=== PATIENT | female | born 1985 | race Two or more races ===

== ENCOUNTER 2018-10-24 11:42 | Emergency (ER) | payer MEDICAID, OTHER ==
[~2018-10-24] VITALS: Ht 152.4 cm; Wt 63.5 kg
[2018-10-24 12:16] VITALS: BP 127/85
--- NOTE | 2018-10-24 12:21 | Emergency Room Report ---
History of Present Illness General Chief Complaint: Pain Source: Patient Present Illness HPI 30-year-old female presents to the emergency department complaining of 7/10 in severity left arm pain with a burning sensation and intermittent tingling at the location of where her neck splint on and plan is situated x 2 days. Patient reports that next month she is due for removal and reinsertion of a new implant. Patient states that her implant has begun to wear off and her periods have come back over the course of this past month and she has been having a lot of irregular bleeding. Patient denies muscle weakness in the affected extremity she denies trauma or fall she denies erythema, warmth or skin color changes. pt. denies abdominal pain. Pt. denies recent unprotected intercourse. Allergies: Coded Allergies: No Known Allergies (Unverified , 10/24/18) Patient History Past Medical History: see triage record Past Surgical History: none Pertinent Family History: none Last Menstrual Period: 10/10/2018 Now: No Reviewed Nursing Documentation: PMH: Agreed; PSxH: Agreed Nursing Documentation-PMH Hx Seizures: Yes - doesn't take med at this time. Review of Systems All Other Systems: negative except mentioned in HPI Physical Exam Vital Signs Date Time Temp Pulse Resp B/P (MAP) Pulse Ox O2 Delivery O2 Flow Rate FiO2 10/24/18 11:47 97.5 81 18 127/85 99 Room Air Sp02 EP Interpretation: reviewed, normal General Appearance: no apparent distress, alert, GCS 15, non-toxic Head: normocephalic, atraumatic Eyes: bilateral eye normal inspection, bilateral eye PERRL ENT: hearing grossly normal, normal voice, other - no neck pain or ttp. Neck: full range of motion Respiratory: chest non-tender, lungs clear, normal breath sounds, speaking full sentences Cardiovascular #1: regular rate, rhythm, normal capillary refill Cardiovascular #2: 2+ radial (R), 2+ radial (L) Rectal: deferred Genitourinary: normal inspection Musculoskeletal: back normal, gait/station normal, normal range of motion, other - FROM of the Shoulder and elbow, tender - left UE medially, ttp to palpation over the implant which is palpated superficially. Neurologic: alert, oriented x3, responsive, motor strength/tone normal, sensory intact, normal gait, speech normal, grossly normal Psychiatric: judgement/insight normal Skin: normal color, no rash, warm/dry, well hydrated Medical Decision Making PA Attestation Dr. Ortiz is my supervising Physician whom patient management has been discussed with. Diagnostic Impression: Primary Impression: Arm pain, left ER Course 30-year-old female presents to the emergency department complaining of 7/10 in severity left arm pain with a burning sensation and intermittent tingling at the location of where her neck splint on and plan is situated x 2 days. Patient reports that next month she is due for removal and reinsertion of a new implant. Patient states that her implant has begun to wear off and her periods have come back over the course of this past month and she has been having a lot of irregular bleeding. Patient denies muscle weakness in the affected extremity she denies trauma or fall she denies erythema, warmth or skin color changes. pt. denies abdominal pain. Pt. denies recent unprotected intercourse. Ddx considered but are not limited to Cellulitis/abscess Sprain/Strain/Spasm, DVT just to name a few. Vital signs: are WNL, pt. is afebrile H&PE are most consistent with musculoskeletal injury will perform imaging to r/ o fractures/dislocations. ORDERS: - UE Duplex US: negative for DVT, US tech also focused on area of implant and does not see any fluid collection or abnormal findings. ED INTERVENTIONS: - Tylenol # 3 -I do not identify an emergent condition at this time. With current presentation , pt. is stable for close outpatient follow up and conservative treatment. D/ w pt. to return promptly to ED with worsening or new symptoms.- Pt. verbalizes' understanding and agreement with proposed treatment plan.proposed treatment plan. DISCHARGE: At this time pt. is stable for d/c to home. Will provide printed patient care instructions, and any necessary prescriptions. Care plan and follow up instructions have been discussed with the patient prior to discharge. CT/MRI/US Diagnostic Results CT/MRI/US Diagnostic Results : Imaging Test Ordered: Venous Duplex UE US Impression Negative for acute DVT - unit technician report. Last Vital Signs Date Time Temp Pulse Resp B/P (MAP) Pulse Ox O2 Delivery O2 Flow Rate FiO2 10/24/18 12:16 97.5 81 18 127/85 99 Room Air Disposition: HOME, SELF-CARE Condition: Stable Scripts Ibuprofen* (MOTRIN*) 600 Mg Tablet 600 MG ORAL THREE TIMES A DAY, #30 TAB 0 Refills Prov: Juanita Leo 10/24/18 Patient Instructions: Pain Without a Known Cause, Radicular Pain Additional Instructions: Take medications as directed. Follow up with a Primary Care Provider in 3-5 days, even if your symptoms have resolved. FOR NEXPLANON REMOVAL Return sooner to ED if new symptoms occur, or current symptoms become worse. - Please note that this Emergency Department Report was dictated using PowerStorestrans[employer] typist technology software, occasionally this can lead to erroneous entry secondary to interpretation by the dictation equipment. Juanita Leo Oct 24, 2018 12:21
[2018-10-24] MEDS ORDERED: Tylenol #3 tab (300mg/30mg) ORAL ONE (12:30)
[2018-10-24] MEDS ORDERED: IBUPROFEN600 MG ORAL (14:56)
--- NOTE | 2018-10-24 15:04 | Diagnostic Imaging Report ---
EXAM: US Duplex Left Upper Extremity Veins CLINICAL HISTORY: PAIN TECHNIQUE: Real-time duplex ultrasound scan of the left upper extremity veins integrating B-mode two-dimensional vascular structure, Doppler spectral analysis, color flow Doppler imaging and compression. COMPARISON: No relevant prior studies available. FINDINGS: Deep veins: Unremarkable. No DVT in the internal jugular, subclavian, axillary, or brachial veins. The veins demonstrate normal color flow, are normally compressible, with normal phasic flow and/or augmentation response. Superficial veins: Unremarkable. No thrombus in the visualized basilic and cephalic veins. IMPRESSION: No DVT demonstrated.
[2018-10-24 16:32] VITALS: BP 127/85
== END 2018-10-24 15:08 | disposition home or self-care (01) ==
LOC: EMR 14:25
DX: M79.602 Pain in left arm (principal)
CPT/HCPCS: 93971; 99284

== ENCOUNTER 2019-11-28 10:03 | Emergency (ER) | payer SELFPAY ==
[~2019-11-28] VITALS: Ht 154.9 cm; Wt 62.1 kg
[~2019-11-28 10:03] MED LIST: IBUPROFEN600 MG ORAL
[2019-11-28 10:15] VITALS: BP 137/93
[2019-11-28] MEDS ORDERED: Morphine Sulfate 4mg/ml Inj (IV USE ONLY) IVP ONE (10:15)
[2019-11-28] MEDS ORDERED: ceFAZolin 1gm/50ml Premix 50 ML IV ONE (10:15)
--- NOTE | 2019-11-28 10:15 | NUR ---
ED Nurse Note: Pt ambulated to ER d/t post dog bite on LT hand. Per pt, she was just having some jogging with spouse when neighbor's bog attacked and bit her hand. First aid given by charge nurse and ophthalmic medical technologist. Placed on bed.
--- NOTE | 2019-11-28 10:25 | NUR ---
ED Nurse Note: X-ray on bedside
[2019-11-28] MEDS ORDERED: KEPPRA500 M4 ORAL ×2 (10:26→12:18)
--- NOTE | 2019-11-28 10:34 | Emergency Room Report ---
History of Present Illness General Chief Complaint: Animal Bite Source: Patient Present Illness HPI Patient is a 34-year-old female presents after dog bite just prior to arrival. Patient is right-hand dominant. Had recently been jogging when neighbors dog bit her to the hand one time. Patient denies any pulsatile bleeding. She reports having increased pain to the index as well as middle finger.Denies any other locations of pain. Reports having some paresthesias to the hand. Reports having a tetanus vaccine approximately 4 years ago. Denies any medication allergies. Allergies: Coded Allergies: No Known Allergies (Unverified , 10/24/18) Patient History Past Medical History: see triage record Reviewed Nursing Documentation: PMH: Agreed; PSxH: Agreed Nursing Documentation-PMH Hx Seizures: Yes - doesn't take med at this time. Review of Systems All Other Systems: negative except mentioned in HPI Physical Exam Vital Signs Date Time Temp Pulse Resp B/P (MAP) Pulse Ox O2 Delivery O2 Flow Rate FiO2 11/28/19 10:13 98.2 73 19 137/93 (108) 98 Room Air General Appearance: well appearing, no apparent distress, alert, GCS 15 Head: normocephalic, atraumatic ENT: hearing grossly normal, normal voice Neck: full range of motion, supple Respiratory: lungs clear, no respiratory distress, speaking full sentences Cardiovascular #1: normal inspection Gastrointestinal: normal inspection Musculoskeletal: no calf tenderness Neurologic: alert, motor strength/tone normal, fixed assets accountant III-XII nml as tested, oriented x3, normal gait Psychiatric: mood/affect normal Skin: laceration - Complex laceration to the webspace of the left hand between index and middle finger, superficial laceration to the index finger Medical Decision Making Diagnostic Impression: Primary Impression: Bite by animal Additional Impressions: Laceration of hand, complicated Nerve injury ER Course Patient presented after an animal bite. Differential diagnosis include was not limited to foreign body, fracture, nerve injury among others. Because of complexity of patient's case laboratory tests and imaging studies were ordered. Patient was given IV Ancef as well as IV pain medications. Given the complex nature of the laceration hand specialist was consulted. X-ray of the hand read by hand x-ray interpreted by me showed no evident fracture with soft tissue deformity between the webspace of the index and middle finger. Dr. Jakob Covington was contacted and agreed to come to see the patient. The repair of hand laceration was per Dr. Covington.Patient will be followed up with Dr. Covington on Friday. She was given prescriptions for pain medications as well as Keppra due to a prior history of seizure disorder. Augmentin was also given prescription for antibiotics. Patient is to return if she had any worsening condition or other concerns. She advised to keep her arm elevated. Labs Test 11/28/19 10:17 11/28/19 11:30 White Blood Count 5.3 K/UL (4.8-10.8) Red Blood Count 4.26 M/UL (4.20-5.40) Hemoglobin 14.5 G/DL (12.0-16.0) Hematocrit 39.7 % (37.0-47.0) Mean Corpuscular Volume 93 FL (80-99) Mean Corpuscular Hemoglobin 33.9 PG (27.0-31.0) Mean Corpuscular Hemoglobin Concent 36.5 G/DL (32.0-36.0) Red Cell Distribution Width 10.7 % (11.6-14.8) Platelet Count 289 K/UL (150-450) Mean Platelet Volume 7.4 FL (6.5-10.1) Neutrophils (%) (Auto) 51.4 % (45.0-75.0) Lymphocytes (%) (Auto) 40.5 % (20.0-45.0) Monocytes (%) (Auto) 7.0 % (1.0-10.0) Eosinophils (%) (Auto) 0.4 % (0.0-3.0) Basophils (%) (Auto) 0.8 % (0.0-2.0) Prothrombin Time 9.7 SEC (9.30-11.50) Prothromb Time International Ratio 0.9 (0.9-1.1) Activated Partial Thromboplast Time 25 SEC (23-33) Sodium Level 142 MMOL/L (136-145) Potassium Level 4.2 MMOL/L (3.5-5.1) Chloride Level 106 MMOL/L (98-107) Carbon Dioxide Level 25 MMOL/L (21-32) Anion Gap 11 mmol/L (5-15) Blood Urea Nitrogen 6 mg/dL (7-18) Creatinine 0.8 MG/DL (0.55-1.30) Estimat Glomerular Filtration Rate > 60 mL/min (>60) Glucose Level 98 MG/DL (74-106) Calcium Level 8.7 MG/DL (8.5-10.1) Total Bilirubin 0.4 MG/DL (0.2-1.0) Aspartate Amino Transf (AST/SGOT) 28 U/L (15-37) Alanine Aminotransferase (ALT/SGPT) 26 U/L (12-78) Alkaline Phosphatase 62 U/L (46-116) Total Protein 8.1 G/DL (6.4-8.2) Albumin 4.1 G/DL (3.4-5.0) Globulin 4.0 g/dL Albumin/Globulin Ratio 1.0 (1.0-2.7) Urine Color Pale yellow Urine Appearance Clear Urine pH 5 (4.5-8.0) Urine Specific [place] 1.005 (1.005-1.035) Urine Protein Negative (NEGATIVE) Urine Glucose (UA) Negative (NEGATIVE) Urine Ketones Negative (NEGATIVE) Urine Blood Negative (NEGATIVE) Urine Nitrite Negative (NEGATIVE) Urine Bilirubin Negative (NEGATIVE) Urine Urobilinogen Normal MG/DL (0.0-1.0) Urine Leukocyte Esterase Negative (NEGATIVE) Urine RBC 0 /HPF (0 - 2) Urine WBC 0 /HPF (0 - 2) Urine Squamous Epithelial Cells Few /LPF (NONE/OCC) Urine Bacteria Occasional /HPF (NONE) Urine HCG, Qualitative Negative (NEGATIVE) Last Vital Signs Date Time Temp Pulse Resp B/P (MAP) Pulse Ox O2 Delivery O2 Flow Rate FiO2 11/28/19 10:13 98.2 73 19 137/93 (108) 98 Room Air Status: improved Disposition: HOME, SELF-CARE Condition: Stable Scripts Ibuprofen* (MOTRIN*) 600 Mg Tablet 600 MG ORAL Q8H PRN for For Pain, #30 TAB 0 Refills Prov: Monroe Sullivan MD 11/28/19 Hydrocodone Bit/Acetaminophen 5-325* (NORCO 5-325*) 1 Each Tablet 1 TAB ORAL Q6H PRN for For Pain, #10 TAB 0 Refills Prov: Monroe Sullivan MD 11/28/19 Levetiracetam (KEPPRA) 500 Mg Tablet 500 MG ORAL EVERY 12 HOURS, #60 TAB 0 Refills Prov: Monroe Sullivan MD 11/28/19 Amoxicillin/Potassium Clav 875-125* (AUGMENTIN 875-125 TABLET*) 1 Each Tablet 1 TAB ORAL TWICE A DAY, #20 TAB Prov: Monroe Sullivan MD 11/28/19 Monroe Sullivan MD Nov 28, 2019 10:34
--- NOTE | 2019-11-28 10:35 | NUR ---
ED Nurse Note: Pt. informed NPO per Dr. Sullivan' order
[2019-11-28 10:45] LABS: INR 0.9 (0.9-1.1)
[2019-11-28 10:46] LABS: ANION GAP 11 mmol/L (5-15); BLOOD UREA NITROGEN 6 mg/dL (7-18); CALCIUM 8.7 MG/DL (8.5-10.1); CARBON DIOXIDE 25 MMOL/L (21-32); CHLORIDE 106 MMOL/L (98-107); CREATININE 0.8 MG/DL (0.55-1.30); POTASSIUM 4.2 MMOL/L (3.5-5.1); SODIUM 142 MMOL/L (136-145)
[2019-11-28 10:48] LABS: BASOPHILS % (AUTO) 0.8 % (0.0-2.0); EOSINOPHILS % (AUTO) 0.4 % (0.0-3.0); HEMATOCRIT 39.7 % (37.0-47.0); HEMOGLOBIN 14.5 G/DL (12.0-16.0); LYMPHOCYTES % (AUTO) 40.5 % (20.0-45.0); MEAN CORPUSCULAR VOLUME 93 FL (80-99); NEUTROPHILS % (AUTO) 51.4 % (45.0-75.0); PLATELET COUNT 289 K/UL (150-450); RED BLOOD COUNT 4.26 M/UL (4.20-5.40); RED CELL DISTRIBUTION WIDTH 10.7 % (11.6-14.8); WHITE BLOOD COUNT 5.3 K/UL (4.8-10.8)
[2019-11-28 10:51] LABS: ALANINE AMINOTRANSFERASE 26 U/L (12-78); ALBUMIN 4.1 G/DL (3.4-5.0); ALKALINE PHOSPHATASE 62 U/L (46-116); ASPARTATE AMINO TRANSFERASE 28 U/L (15-37); BILIRUBIN,TOTAL 0.4 MG/DL (0.2-1.0)
[2019-11-28] MEDS ORDERED: Lidocaine 1% 10mg/ml/EPI 0.01mg/ml 30ml INJ ONE (11:00)
--- NOTE | 2019-11-28 11:10 | Diagnostic Imaging Report ---
EXAM: XR Left Hand Complete, 3 or More Views CLINICAL HISTORY: PAIN TECHNIQUE: Frontal, lateral and oblique views of the left hand. COMPARISON: None FINDINGS: Bones/joints: No displaced fracture or dislocation identified. Joint space is maintained. No bony lesion. No joint effusion. Soft tissues: Soft tissue swelling and lacerations involving the left second digit. No definite radiopaque foreign body identified. IMPRESSION: 1. No displaced fracture or dislocation identified. 2. Soft tissue swelling and lacerations involving the left second digit.
--- NOTE | 2019-11-28 11:33 | NUR ---
ED Nurse Note: FAXED OVER THE BITE REPORTING FORM TO
[2019-11-28] MEDS ORDERED: Hydrogen Peroxide 473ml Bottle TOPIC ONE ×2 (11:50→12:00)
--- NOTE | 2019-11-28 11:56 | NUR ---
ED Nurse Note: DR. CORINNE NGUYEN AT THE BEDSIDE
[2019-11-28 12:00] LABS: APPEARANCE,URINE CLEAR; BILIRUBIN, URINE NEGATIVE (NEGATIVE); COLOR,URINE PALE YELLOW; GLUCOSE, URINE (UA) NEGATIVE (NEGATIVE); KETONES,URINE NEGATIVE (NEGATIVE); LEUKOCYTE ESTERASE ,URINE NEGATIVE (NEGATIVE); NITRITE,URINE NEGATIVE (NEGATIVE); PH,URINE 5 (4.5-8.0); PROTEIN,URINE NEGATIVE (NEGATIVE); UROBILINOGEN,URINE NORMAL MG/DL (0.0-1.0)
[2019-11-28] MEDS ORDERED: IBUPROFEN600 MG ORAL (12:18)
[2019-11-28] MEDS ORDERED: AUGMENTIN 875-1 EAC1 ORAL (12:18)
[2019-11-28] MEDS ORDERED: NORCO 5-325 TA1 EACH ORAL (12:18)
[2019-11-28] MEDS ORDERED: Bacitracin Oint 15gm Tube TOPIC SCH (13:00)
--- NOTE | 2019-11-28 13:10 | NUR ---
ED Nurse Note: Pt's IV site removed without complication.
[2019-11-28 13:11] VITALS: BP 137/93
--- NOTE | 2019-11-28 13:11 | NUR ---
ER DISCHARGE NOTE: Pt is cleared to be discharged per ERMD, pt is AOx4, VSS, on RA. pt was given dc and prescription instructions, pt was able to verbalize understanding, pt id band removed. pt is able to ambulate with steady gait. pt took all belongings.
== END 2019-11-28 13:11 | disposition home or self-care (01) ==
LOC: EMR 11:00
DX: S61.452A Open bite of left hand, initial encounter (principal); W54.0XXA Bitten by dog, initial encounter; Y92.9 Unspecified place or not applicable; S61.412A Laceration without foreign body of left hand, initial encounter; T14.8XXA Other injury of unspecified body region, initial encounter; G40.909 Epilepsy, unspecified, not intractable, without status epilepticus
CPT/HCPCS: 36415; 73130; 80053; 81001; 81025; 85025; 85610; 85730; 96365; 96375; 99284; J0690; J2270; J2405; J7040